=== PATIENT | female | born 1980 | race Caucasian/White ===

== ENCOUNTER 2016-07-30 23:22 | Emergency (ER) | payer OTHER ==
[2016-03-19 00:10] VITALS: BP 105/77
[~2016-07-30 23:22] MED LIST: CITA40TA12 PO; HYDR1TAB12 PO; LEVE100020 PO; LORA2TAB89 PO; Lyrica PO; ZOLP10TA PO; cyclobenzaprine
--- NOTE | 2016-07-30 23:25 | ED.ADGEN ---
Past History Past Medical History: Anxiety, Depression, Fibromyalgia, Seizure Past Surgical History: No Surgical History Alcohol Use: None Drug Use: Opiates Adult General Chief Complaint Chief Complaint " "I don't know if I really want to be seen.. I ve had this tooth ache...and now my ear hurts... but I really don't want to be seen... come back later.. and I will let you know..." HPI HPI Patient is a 36 year old female who presents with above hx and complaints ear ache and dental pain. Has apt. tomorrow at [facility]. Pt. re-interview x 2, on third try pt. stated she felt better and decided to see her clinic in the morning. Pt. still refused exam. Advised it would only take a couple min. to do a quick exam. Pt. declined. Advised to return at any time. encouraged her to complete the exam. Pt. refused. Review of Systems Review of Systems Constitutional: Denies fever or chills [] Eyes: Denies change in visual acuity, redness, or eye pain []Complaints of Rt. ear and dental pain. HENT: Denies nasal congestion or sore throat [] Respiratory: Denies cough or shortness of breath [] Cardiovascular: No additional information not addressed in HPI [] GI: Denies abdominal pain, nausea, vomiting, bloody stools or diarrhea [] : Denies dysuria or hematuria [] Musculoskeletal: Denies back pain or joint pain [] Integument: Denies rash or skin lesions [] Neurologic: Denies headache, focal weakness or sensory changes [] Endocrine: Denies polyuria or polydipsia [] Family History Family History Family history not given by patient Current Medications Current Medications See nursing for home meds Allergies Allergies Allergies Coded Allergies Type Severity Reaction Last Updated Verified gabapentin Allergy Severe Swelling 11/21/15 Yes Corticosteroids (Glucocorticoids) Allergy Intermediate AGGRESSIVENESS 11/21/15 Yes NSAIDS (Non-Steroidal Anti-Inflamma Allergy Intermediate Hives 11/21/15 Yes Physical Exam Physical Exam Constitutional: Well developed, well nourished, moderate distress, non-toxic appearance. [] HENT: Refused exam EKG EKG [] Radiology/Procedures Radiology/Procedures [] Course & Med Decision Making Course & Med Decision Making Pertinent Labs and Imaging studies reviewed. (See chart for details). Begged patient to let me complete at least a short exam. Pt. refused. Would not give a reason for refusal. Pt. left stated she felt better and would see her doctor this morning.; Pt. advised to return at any time. [] Final Impression Final Impression 1. Dental Pain 2. Ear Pain[] Problems: Dragon Disclaimer Dragon Disclaimer This electronic medical record was generated, in whole or in part, using a voice recognition dictation system. ROSETTA MCGREGOR MD Jul 30, 2016 23:25
== END 2016-07-31 00:32 | disposition home or self-care (01) ==
LOC: ER 23:30
DX: K08.89 Other specified disorders of teeth and supporting structures (principal); H92.09 Otalgia, unspecified ear; M79.7 Fibromyalgia; Z88.8 Allergy status to other drugs, medicaments and biological substances; Z53.21 Procedure and treatment not carried out due to patient leaving prior to being seen by health care provider